=== PATIENT | female | born 1990 | race Caucasian/White ===

== ENCOUNTER 2019-01-20 14:05 | Emergency (ER) | payer MEDICAID ==
[~2019-01-20] VITALS: Ht 147.3 cm; Wt 125.2 kg
--- NOTE | 2019-01-20 14:07 | NUR ---
Patient to ER bed H1 to gown for evaluation. Side rails up.
[2019-01-20 14:38] VITALS: BP_SYST 146
--- NOTE | 2019-01-20 15:03 | NUR ---
ER Dr. Echeverria at bedside examining patient.
--- NOTE | 2019-01-20 15:07 | NUR ---
Patient given written and verbal discharge instructions and verbalizes understanding. ER MD discussed with patient the results and treatment provided. Patient in stable condition. ID arm band removed. No Rx given. Patient educated on pain management and to follow up with PMD. Pain Scale 0/10. Opportunity for questions provided and answered.
[2019-01-20 15:08] VITALS: BP_SYST 146
== END 2019-01-20 15:07 ==
LOC: SED 14:05
DX: Z02.89 Encounter for other administrative examinations (principal)
CPT/HCPCS: 99283